=== PATIENT | female | born 1985 | race Caucasian/White ===

== ENCOUNTER 2022-05-21 21:50 | Emergency (ER) | payer BC, SELFPAY ==
[2022-05-21 22:06] VITALS: BP 130/83; PULSE 105; RESP 18; TEMP 37.6; O2SAT 95; BMI 34.0
--- NOTE | 2022-05-21 22:58 | ED_ITS ---
HPI - SOB/Dyspnea General Chief Complaint: Shortness of Breath/Dyspnea Stated Complaint: Asthma/Crackling in lungs Time Seen by Provider: 05/21/22 22:48 Source: patient and RN notes reviewed History of Present Illness HPI Narrative: 36-year-old woman presenting to the emergency department with increased shortness of breath. She acknowledges that she was getting pretty stressed about this. She also has underlying ?bad vertigo? which can flare from time to time. A little bit of dizziness earlier today and then had an episode though this was preceded by coughing fit and then was beginning to feel rather lightheaded and tingly. 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 She was also feeling crackly in her chest. Since arrival to the ER had been feeling wheezy as well laughing the describing herself like 1 of those chickens referring to diverticular with a squeezy whistle I think. Exacerbated with inspiration. 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 Has not had severe exacerbations since high school. Has never been intubated as far as I can tell in our conversation. She did borrow her mom's inhaler. Unclear what it was exactly. Had about 3 treatments of that today and did not seem to be making much difference. Unclear if this was rescue or controller medication. Currently out of her own. As needed to [facility]. No fever cough or cold symptoms preceding this today Related Data Allergies Allergy/AdvReac Type Severity Reaction Status Date / Time No Known Drug Allergies Allergy Verified 05/21/22 22:11 Review of Systems Status of ROS: Reports: 10 or more systems reviewed and unremarkable except as noted in History and below [facility] Medical History Asthma Surgical History No significant past surgical history Social History Smoking Status: Former smoker Do you use any of these nicotine containing products: None Second hand tobacco smoke exposure: Yes How often do you have a drink containing alcohol: never How often do you have six or more drinks on one occasion: Never AUDIT-C Alcohol total score: 0 Non-prescribed substance use: denies use Exam Narrative: Exam Narrative: Pleasant. NAD. Breathing easily though intermittently takes deeper inhalation. There is no stridor. Cranial nerves 2-12 are intact. Speaking easily full sentences. Lungs are clear with equal expansion excursion. Oropharynx unremarkable. Cardiovascular RRR no MR Irina on auscultation. Extremities are without edema. No apparent rash though forearms look just a little flushed Const: Vital Signs, click to edit/add: Vital Signs - 24 hr 05/21/22 22:06 Temperature 99.6 F Pulse Rate [Pulse Oximeter] 105 H Respiratory Rate 18 Blood Pressure [Le ft Upper Arm] 130/83 Pulse Oximetry 95 Course Course Hospital Course: We did discuss potential nebulization treatment however she is looking really good with her vitals in breathing and speaking easily here now. There is no wheeze on exam. Decided to proceed with outpatient treatment. If she does not feel some more relief with the albuterol inhaler as prescribed, she will represent. Vital Signs Vital signs: Initial Vital Signs Temperature 99.6 F 05/21/22 22:06 Temperature Source Temporal Artery Scan 05/21/22 22:06 Pulse Rate 105 H 05/21/22 22:06 Pulse Rhythm 05/21/22 22:06 Respiratory Rate 18 05/21/22 22:06 Respiratory Effort Short of Breath 05/21/22 22:06 Respiratory Depth Normal 05/21/22 22:06 Respiratory Pattern 05/21/22 22:06 Blood Pressure 130/83 05/21/22 22:06 Blood Pressure Mean 98 05/21/22 22:06 Blood Pressure Position Sitting 05/21/22 22:06 Pulse Oximetry 95 05/21/22 22:06 Oxygen Delivery Method 05/21/22 22:06 Vital Signs Temperature 99.6 F 05/21/22 22:06 Pulse Rate 105 H 05/21/22 22:06 Respiratory Rate 18 05/21/22 22:06 Blood Pressure 130/83 05/21/22 22:06 Pulse Oximetry 95 05/21/22 22:06 Temperature 99.6 F 05/21/22 22:06 Pulse Rate 105 H 05/21/22 22:06 Respiratory Rate 18 05/21/22 22:06 Blood Pressure 130/83 05/21/22 22:06 Pulse Oximetry 95 05/21/22 22:06 MDM - SOB/Dyspnea MDM Narrative Medical decision making narrative: Sounds like there may have been some exacerbation of anxiety as well. Also admits that the vertigo does not make things better. Medical Records Attestation: I reviewed the patient's medical records. Discharge Plan Discharge Clinical Impression: Asthma with acute exacerbation Patient Disposition: Home, Self-Care Condition: Improved Instructions: How to Use a Metered-Dose Inhaler (ED) Additional Instructions: Sounds like there may have been a little bit of an exacerbation of anxiety. Please call to reestablish primary care. Albuterol inhaler and steroids/prednisone from [facility]. I'd use the inhaler with a spacer. Take 60 mg of prednisone for the 1st day and then 40 mg for days 2 and 3. Return as needed. Stand Alone Forms: [facility] Info Instructions
== END 2022-05-21 23:23 | disposition home or self-care (01) ==
PROVIDERS: Emergency Provider Family Medicine
DX: J45.901 Unspecified asthma with (acute) exacerbation (principal)
CPT/HCPCS: 99282; 99283; 99284

== ENCOUNTER 2022-06-24 12:10 | Outpatient (CLI) | payer BC, SELFPAY ==
[2022-06-24 14:52] LABS: Albumin* 4.1 g/dL (3.3-5.0); Chloride* 104 mmol/L (96-114); Sodium* 139 mmol/L (135-149)
[2022-06-24 14:53] LABS: Potassium* 5.5 mmol/L (3.6-5.1)
[2022-06-24 14:55] LABS: Alanine Aminotransferase* 27 U/L (4-35); Alkaline Phosphatase* 72 U/L (40-150); Aspartate Amino Transferase* 29 U/L (12-35); Bilirubin Total* 0.3 mg/dL (0.1-1.5); Blood Urea Nitrogen* 15 mg/dL (5-24); Carbon Dioxide* 28 mmol/L (20-32); Cholesterol* 218 mg/dL (90-199); Creatinine* 0.9 mg/dL (0.5-1.5); Estimated Glomerular Filt Rate 84 ml/min; Glucose* 102 mg/dL (60-115); Total Protein* 7.3 g/dL (6.0-8.3); Triglycerides* 159 mg/dL (40-149)
[2022-06-24 14:56] LABS: Calcium* 8.8 mg/dL (8.4-10.6); HDL Cholesterol* 48 mg/dL (>=50); LDL Cholesterol Calculated 138 mg/dL (<100)
== END 2022-06-24 12:11 | disposition home or self-care (01) ==
PROVIDERS: Visit Provider Family Medicine
DX: Z01.419 Encounter for gynecological examination (general) (routine) without abnormal findings (principal); E66.9 Obesity, unspecified; F41.9 Anxiety disorder, unspecified; R53.83 Other fatigue; R06.00 Dyspnea, unspecified; R42 Dizziness and giddiness; Z13.6 Encounter for screening for cardiovascular disorders
CPT/HCPCS: 80053; 80061; 84443